=== PATIENT | female | born 1975 | race Caucasian/White ===

== ENCOUNTER 2018-07-07 07:58 | Day surgery (SDC) | payer MEDICAID ==
[2018-07-07] MEDS ORDERED: CEFAZOLIN 2 GM/50 ML (PMX) 50 ML IVPB (10:00)
[2018-07-07] MEDS ORDERED: SOD CHLORIDE 0.9% 1,000 ML IV (10:00)
[2018-07-07] MEDS ORDERED: PROPOFOL 20 ML (12:58)
[2018-07-07] MEDS ORDERED: FENTAnyl 50 MCG/ML VIAL (12:58)
[2018-07-07] MEDS ORDERED: MIDAZOLAM 1 MG/ML 2 ML INJ (12:58)
[2018-07-07] MEDS ORDERED: CEFAZOLIN 1 GM INJ (12:58)
[2018-07-07] MEDS ORDERED: OXYCODONE/ACETAMINOPHEN (5/325) TAB PO (13:30)
[2018-07-07] MEDS ORDERED: METOCLOPRAMIDE 10 MG INJ IV (13:30)
[2018-07-07] MEDS ORDERED: DIPHENHYDRAMINE 50 MG INJ IV (13:30)
[2018-07-07] MEDS ORDERED: FENTAnyl 50 MCG/ML VIAL IV ×3 (13:30)
[2018-07-07] MEDS ORDERED: ONDANSETRON 4 MG INJ IV (13:30)
[2018-07-07] MEDS ORDERED: LABETALOL HCL 20MG INJ IV (13:30)
[2018-07-07] MEDS ORDERED: HYDROmorphONE 1 MG/5 ML IV SYRINGE IV ×3 (13:30)
[2018-07-07] MEDS ORDERED: EPHEDrine SULFATE 50 MG/5 ML SYG IV (13:30)
[2018-07-07] MEDS ORDERED: MEPERIDINE 25 MG INJ IV (13:30)
[2018-07-07] MEDS ORDERED: PHENYLephrine (100 MCG/ML) 5ML SYG (14:34)
[2018-07-07] MEDS ORDERED: SUCCINYLCHOLINE CHLORIDE 100 MG/5 ML SYG IV (14:41)
[2018-07-07] MEDS ORDERED: METOCLOPRAMIDE 10 MG INJ (14:41)
[2018-07-07] MEDS ORDERED: ONDANSETRON 4 MG INJ (14:41)
[2018-07-07] MEDS ORDERED: DEXAMETHASONE 4 MG/ML 1 ML INJ (14:42)
[2018-07-07] MEDS ORDERED: HYDROCODONE/APAP (7.5/325) TAB PO (15:00)
== END 2018-07-07 16:33 | disposition home or self-care (01) ==
LOC: SDS 07:58
DX: D24.1 Benign neoplasm of right breast (principal)
CPT/HCPCS: 19301; 71045; 88307; 93005